=== PATIENT | male | born 1990 | race Two or more races ===

== ENCOUNTER 2020-07-02 14:25 | Emergency (ER) | payer SELFPAY ==
[~2020-07-02] VITALS: Ht 180.3 cm; Wt 101.7 kg
[2020-07-02 14:32] VITALS: BP 142/86
[2020-07-02] MEDS ORDERED: ONDANSETRON ODT 4 MG PO ONE (15:00)
[2020-07-02] MEDS ORDERED: KETOROLAC 30 MG/1 ML IM ONE (15:00)
[2020-07-02] MEDS ORDERED: CYCLOBENZAPRINE 10 MG TABLET PO ONE (15:00)
[2020-07-02] MEDS ORDERED: HYDROcodone/APAP 5/325 TABLET PO ONE (15:00)
--- NOTE | 2020-07-02 15:19 | NUR ---
Rosa hood in ED - 07/02/20 at 1520 by MARISEL PT TO ROOM FROM [facility] AT THIS TIME.
--- NOTE | 2020-07-02 15:20 | NUR ---
PT NOT IN LOBBY AT THIS TIME.
--- NOTE | 2020-07-02 15:45 | NUR ---
PT NOT IN LOBBY AT THIS TIME.
--- NOTE | 2020-07-02 18:18 | NUR ---
PT NOT IN LOBBY AT THIS TIME.
== END 2020-07-02 18:20 | disposition left against medical advice (07) ==
LOC: ED 17:30
DX: M54.5 Low back pain (principal); R94.31 Abnormal electrocardiogram [ECG] [EKG]
CPT/HCPCS: 72110; 93005; 99283